=== PATIENT | female | born 1995 ===

== ENCOUNTER 2021-07-08 20:59 | Emergency (ER) | payer OTHER ==
[2021-07-08] MEDS ORDERED: ACETAMINOPHEN 325 MG TAB PO ONE (21:26)
--- NOTE | 2021-07-08 22:32 | XRay Report ---
CHEST 1 VIEW 07/08/2021 9:20 PM INDICATION / CLINICAL INFORMATION: cp dyspnea. COMPARISON: None available. FINDINGS: SUPPORT DEVICES: None. HEART / MEDIASTINUM: No significant abnormality. LUNGS / PLEURA: No significant pulmonary or pleural abnormality. No pneumothorax. ADDITIONAL FINDINGS: No significant additional findings. IMPRESSION: 1. No acute findings. Signer Name: Jose Duke DO Signed: 07/08/2021 10:27 PM Workstation Name: [id number]
--- NOTE | 2021-07-08 22:41 | Emergency Department Report ---
- General Chief Complaint: Dyspnea/Respdistress Stated Complaint: CHEST DISCOMFORT Time Seen by Provider: 07/08/21 21:20 Source: EMS Mode of arrival: Stretcher Limitations: No Limitations - History of Present Illness Initial Comments: Patient is a 26-year-old F [place] female who is approximately 34 weeks who is presenting with some chest discomfort. She has had a cough and some mild body aches. Patient had a Covid test 2 days ago when she went to see a play. She did test negative at that time but it was a rapid test. She has not had a PCR. Patient is states her appetite has been decreased over the last several days as well. Denies nausea vomiting or diarrhea. Patient having no complications with her at this time. - Related Data Previous Rx's Medication Instructions Recorded Last Taken Type Albuterol Mdi (or & Nicu Only) 2 puff IH QID PRN #1 inhalation 07/09/21 Unknown Rx [ProAir HFA Inhaler] Azithromycin [Zithromax Z-MAYCO] 250 mg PO DAILY #6 tablet 07/09/21 Unknown Rx Ondansetron [Zofran Odt] 4 mg PO Q8HR #10 tab.rapdis 07/09/21 Unknown Rx Allergies Allergy/AdvReac Type Severity Reaction Status Date / Time Penicillins AdvReac Anaphylaxis Verified 07/08/21 21:41 ED Review of Systems ROS: Stated complaint: CHEST DISCOMFORT Other details as noted in HPI Comment: All other systems reviewed and negative ED Past Medical Hx - Past Medical History Previous Medical History?: No - Surgical History Past Surgical History?: No - Medications Home Medications: Home Medications Medication Instructions Recorded Confirmed Last Taken Type Albuterol Mdi (or & Nicu Only) 2 puff IH QID PRN #1 inhalation 07/09/21 Unknown Rx [ProAir HFA Inhaler] Azithromycin [Zithromax Z-MAYCO] 250 mg PO DAILY #6 tablet 07/09/21 Unknown Rx Ondansetron [Zofran Odt] 4 mg PO Q8HR #10 tab.rapdis 07/09/21 Unknown Rx ED Physical Exam - General Limitations: No Limitations General appearance: alert, in no apparent distress - Head Head exam: Present: atraumatic, normocephalic - Eye Eye exam: Present: normal appearance - ENT ENT exam: Present: mucous membranes moist - Neck Neck exam: Present: normal inspection - Respiratory Respiratory exam: Present: normal lung sounds bilaterally. Absent: respiratory distress, wheezes, rales, rhonchi - Cardiovascular Cardiovascular Exam: Present: normal rhythm, tachycardia, normal heart sounds. Absent: systolic murmur, diastolic murmur, rubs, gallop - GI/Abdominal GI/Abdominal exam: Present: soft, distended (gravid uterus), normal bowel sounds. Absent: tenderness, guarding, rebound, rigid - Extremities Exam Extremities exam: Present: normal inspection - Back Exam Back exam: Present: normal inspection - Neurological Exam Neurological exam: Present: alert, oriented X3 - Psychiatric Psychiatric exam: Present: normal affect, normal mood - Skin Skin exam: Present: warm, dry, intact, normal color. Absent: rash ED Course Vital Signs 07/08/21 21:00 Temperature 102 F H Pulse Rate 145 H Respiratory 23 Rate Blood Pressure 120/45 [Left] O2 Sat by Pulse 96 Oximetry ED Medical Decision Making - Radiology Data CHEST 1 VIEW 07/08/2021 9:20 PM INDICATION / CLINICAL INFORMATION: cp dyspnea. COMPARISON: None available. FINDINGS: SUPPORT DEVICES: None. HEART / MEDIASTINUM: No significant abnormality. LUNGS / PLEURA: No significant pulmonary or pleural abnormality. No pneumothorax. ADDITIONAL FINDINGS: No significant additional findings. IMPRESSION: 1. No acute findings. Signer Name: Jose Duke DO Signed: 07/08/2021 10:27 PM Workstation Name: [id number] - Medical Decision Making Patient is a 26-year-old F [place] female who is presenting with cough and chest discomfort. Chest x-ray negative for pneumonia. Patient has some tachycardia secondary to fever and possible mild dehydration. Patient given 2 L of normal saline and Tylenol for fever. Heart rate is trending downward. Patient will be stable for discharge Critical care attestation.: If time is entered above; I have spent that time in minutes in the direct care of this critically ill patient, excluding procedure time. ED Disposition Clinical Impression: Acute bronchitis, Suspected COVID-19 virus infection Disposition: HOME / SELF CARE / HOMELESS Is pt being admited?: No Does the pt Need Aspirin: No Condition: Stable Instructions: Acute Bronchitis (ED), Acute Bronchitis, Adult, [id number], COVID-19 Frequently Asked Questions, Infection Prevention in the Home Additional Instructions: Please follow-up with your [facility]. Please obtain outpatient COVID-19 testing in the next several days. Time of Disposition: 00:00
[2021-07-08] MEDS ORDERED: SODIUM CHLORIDE 0.9% 1000 ML 1,000 ML IV ONE ×2 (22:43)
[2021-07-09 00:12] VITALS: BP 103/39
== END 2021-07-09 02:02 | disposition home or self-care (01) ==
LOC: ED 20:59
DX: O26.893 Other specified pregnancy related conditions, third trimester (principal); J20.9 Acute bronchitis, unspecified; Z20.822 Contact with and (suspected) exposure to COVID-19; Z3A.34 34 weeks gestation of pregnancy; Z88.0 Allergy status to penicillin
CPT/HCPCS: 71045; 96360; 96361; 99284